=== PATIENT | male | born 1985 | race Caucasian/White ===

== ENCOUNTER 2017-05-24 18:51 | Emergency (ER) | payer BC ==
[~2017-05-24 18:51] MED LIST: LORTA5 PO; PROM25SU8 PO; Z.0.NO CURRENT MEDS
[2017-05-24 19:00] VITALS: BP 158/87; PULSE 88; RESP 20; TEMP 98.5; O2SAT 97
--- NOTE | 2017-05-24 20:55 | PD ---
HPI Chief Complaint: ENT Complaint Time Seen by Provider: 20:55 Travel History International Travel<30 days: No Contact w/Intl Traveler<30days: No Traveled to known affect area: No History of Present Illness HPI 32-year-old male came to the emergency room with history of sore throat for past 3 days. His son was sick with sore throat as well. Patient has been getting on and off chills and fever. Today he took some antibiotic that he had left over from last time but does not remember the name. Vital signs are stable. Patient says it really hurts to swallow. Patient is however able to handle his own secretions and airway. [facility] Past Medical History Narrative Medical List of his past medical, surgical, social and family history is reviewed from the nursing note. Medical History: Denies Significant Hx Diminished Hearing: No Kidney Stones: Yes Tetanus Vaccination: Unknown Influenza Vaccination: No Past Surgical History Surgical History: No Previous Surgery Social History Alcohol Use: Yes (OCCAS) Tobacco Use: No Substance Use: No Allergies-Medications (Allergen,Severity, Reaction): Coded Allergies: No Known Allergies (Verified Allergy, Unknown, 05/24/17) Comments No known drug allergies. Reported Meds & Prescriptions Reported Meds & Active Scripts Active Amoxicillin 500 Mg Cap 500 Mg PO BID 10 Days Narrative Medication List of his home medications reviewed from the nursing note. Review of Systems Except as stated in HPI: all other systems reviewed are Neg General / Constitutional: Positive: Fever HENT: Positive: Sore Throat Physical Exam Narrative GENERAL: Awake, alert, moderate distress SKIN: Focused skin assessment warm/dry. HEAD: Atraumatic. Normocephalic. EYES: Pupils equal and round. No scleral icterus. No injection or drainage. ENT: No nasal bleeding or discharge. Mucous membranes pink and moist. Bilateral grade 3 tonsils or adenopathy. Pharynx is erythematous but no exudates appreciated. NECK: Trachea midline. No JVD. CARDIOVASCULAR: Regular rate and rhythm. No murmur appreciated. RESPIRATORY: No accessory muscle use. Clear to auscultation. Breath sounds equal bilaterally. GASTROINTESTINAL: Abdomen soft, non-tender, nondistended. Hepatic and splenic margins not palpable. MUSCULOSKELETAL: No obvious deformities. No clubbing. No cyanosis. No edema. NEUROLOGICAL: Awake and alert. No obvious cranial nerve deficits. Motor grossly within normal limits. Normal speech. PSYCHIATRIC: Appropriate mood and affect; insight and judgment normal. Data Data Last Documented VS Vital Signs Date Time Temp Pulse Resp B/P (MAP) Pulse Ox O2 Delivery O2 Flow Rate FiO2 05/24/17 19:00 98.5 88 20 158/87 (110) 97 Orders Orders Group A Rapid Strep Screen (05/24/17 20:14) Amoxicillin (Trimox) (05/24/17 21:15) Ibuprofen (Motrin) (05/24/17 21:15) Ed Discharge Order (05/24/17 21:10) Dexamethasone (Decadron) (05/24/17 21:30) MDM Medical Decision Making Medical Screen Exam Complete: Yes Emergency Medical Condition: Yes Medical Record Reviewed: Yes Differential Diagnosis Strep throat, mono, viral illness Narrative Course 9:13 PM rapid strep was positive. Patient was given a dose of amoxicillin, Motrin and Decadron. I'm comfortable discharging him home on prescription and instructions. Procedures EKG Prior to Arrival: No Diagnosis Primary Impression: Strep throat Additional Impressions: Enlargement of tonsils Odynophagia Referrals: Primary Care Physician Additional Instructions: take the medication as per the prescription direction. Take Motrin/ibuprofen/ Advil for pain and fever. This also works as anti-inflammatory and helps with the swelling. Take the antibiotic as per the prescription direction. Return to the ER if condition worsens or any other new concerns. Otherwise follow-up with your primary care. Med/Other Pt SpecificInfo: Prescription(s) given Scripts Amoxicillin (Amoxicillin) 500 Mg Cap 500 MG PO BID for Infection for 10 Days, #20 CAP 0 Refills Prov: Maritza Cruz MD 05/24/17 Disposition: 01 DISCHARGE HOME Condition: Stable Maritza Cruz MD May 24, 2017 20:55
[2017-05-24] MEDS ORDERED: AMOX500C PO (21:10)
[2017-05-24] MEDS ORDERED: AMOXICILLIN (TRIHYDRATE) 500 MG CAP PO ONE (21:15)
[2017-05-24] MEDS ORDERED: IBUPROFEN 600 MG TAB PO ONE (21:15)
[2017-05-24] MEDS ORDERED: DEXAMETHASONE 6 MG TAB PO ONE (21:15)
[2017-05-24] MEDS ORDERED: DEXAMETHASONE 1.5 MG TAB PO ONE (21:30)
== END 2017-05-24 21:39 | disposition home or self-care (01) ==
LOC: PHEFT 18:51
DX: J02.0 Streptococcal pharyngitis (principal); J35.1 Hypertrophy of tonsils; R13.10 Dysphagia, unspecified; Z87.442 Personal history of urinary calculi
CPT/HCPCS: 87880; 99283; J8540